=== PATIENT | female | born 1935 | race Asian ===

== ENCOUNTER 2024-05-10 14:54 | Emergency (ER) | payer MEDICARE, OTHER ==
[~2024-05-10] VITALS: Ht 157.5 cm; Wt 52.2 kg
[2024-05-10 15:00] VITALS: BP 159/76; TEMP 98.3; O2SAT 97
[2024-05-10 15:21] LABS: BASOPHILS # (AUTO) 0.1 K/uL (0.0-0.2); BASOPHILS % (AUTO) 0.8 % (0.0-2.0); EOSINOPHILS # (AUTO) 0.1 K/uL (0.0-0.7); EOSINOPHILS % (AUTO) 1.3 % (0.0-6.0); HEMATOCRIT 34 % (33-45); LYMPHOCYTES # (AUTO) 2.2 K/uL (0.8-4.8); LYMPHOCYTES % (AUTO) 27.8 % (20.0-44.0); MEAN CORPUSCULAR HEMOGLOBIN 30 PG (26.0-33.0); MEAN CORPUSCULAR HGB CONC 33 g/dl (31.0-36.0); MEAN CORPUSCULAR VOLUME 93 fL (82-100); MONOCYTES # (AUTO) 0.6 K/uL (0.1-1.30); NEUTROPHILS % (AUTO) 62.1 % (43.0-81.0); PLATELET COUNT (AUTO) 197 K/uL (150-450); RED BLOOD CELL COUNT(AUTO) 3.61 MIL/uL (4.0-5.2); RED CELL DISTRIBUTION WIDTH 13.5 % (11.5-15.0)
[2024-05-10 15:40] LABS: CALCIUM, SERUM 9.4 mg/dL (8.5-10.1); CARBON DIOXIDE 25 mmol/L (21-32); CHLORIDE 112 mmol/L (98-107); CREATININE 1.1 mg/dL (0.6-1.3); GLUCOSE 172 mg/dL (74-106); POTASSIUM 4.8 mmol/L (3.5-5.1); SODIUM SERUM 150 mmol/L (136-145); UREA NITROGEN, BLOOD 35 mg/dL (7-18)
[2024-05-10] MEDS: IV NS 0.9% 500 ML BAG IV ONE (16:15)
[2024-05-10] MEDS ORDERED: SODIUM BICARBONATE SYR 50 MEQ/50 ML DISP.SYRIN ONE (16:24)
[2024-05-10] MEDS: SODIUM BICARBONATE SYR 50 MEQ/50 ML DISP.SYRIN IV ONE (16:30)
[2024-05-10] MEDS ORDERED: ATOR10TA PO (16:36)
[2024-05-10] MEDS ORDERED: NAPR-1009 PO (16:36)
[2024-05-10] MEDS ORDERED: PANT40TA2 PO (16:36)
[2024-05-10] MEDS ORDERED: MULT-213 PO (16:36)
[2024-05-10] MEDS ORDERED: METF750T46 PO (16:36)
[2024-05-10] MEDS ORDERED: SACU1TAB PO (16:36)
[2024-05-10] MEDS ORDERED: INSU100I4 SQ (16:36)
[2024-05-10] MEDS ORDERED: FERR220S2 PO (16:36)
[2024-05-10] MEDS ORDERED: ACET-2030 PO ×2 (16:36)
[2024-05-10] MEDS ORDERED: MEGE40TA7 PO (16:36)
[2024-05-10] MEDS ORDERED: ACET-868 PO (16:36)
[2024-05-10] MEDS ORDERED: DOCU100T2 PO (16:36)
[2024-05-10] MEDS ORDERED: CALC-1276 PO (16:36)
[2024-05-10] MEDS ORDERED: ASPI-1169 PO (16:36)
[2024-05-10] MEDS ORDERED: ONDA4TAB5 PO (16:36)
[2024-05-10] MEDS ORDERED: CRAN425C6 PO (16:36)
[2024-05-10] MEDS ORDERED: METO25TA6 PO (16:36)
[2024-05-10] MEDS: Calcium Gluconate 1GM/10ML 4.65 MEQ in IV NS 0.9% 100 ML IV ONE (16:45)
[2024-05-10] MEDS ORDERED: IOHEXOL-350 100 ML VIAL IV ONE (17:11)
[2024-05-10] MEDS ORDERED: CT SWABBABLE VALVE TRANS SET 1 EA INFUS.SET MC ONE (17:12)
[2024-05-10] MEDS ORDERED: IV NS 0.9% 250 ML IV ONE (17:12)
== END 2024-05-10 19:30 | disposition short-term general hospital (02) ==
LOC: ER 15:00
DX: E86.0 Dehydration (principal); E87.0 Hyperosmolality and hypernatremia; R53.1 Weakness; G93.49 Other encephalopathy
CPT/HCPCS: 99285; 70496; 96365; 71045; 96375; 93005; 85025; 80048; 36415; 84484 ×2; 70450; J0612; J3490; J7030; J7050; J7040 ×2; A4223; Q9967

== ENCOUNTER 2024-05-30 13:45 | Inpatient (IN) | payer MEDICARE, OTHER ==
[~2024-05-30] VITALS: Ht 154.9 cm; Wt 48.5 kg
[~2024-05-30 13:45] MED LIST: ACET-2030 PO; ACET-868 PO; ASPI-1169 PO; ATOR10TA PO; CALC-1276 PO; CRAN425C6 PO; DOCU100T2 PO; FERR220S2 PO; INSU100I4 SQ; MEGE40TA7 PO; METF750T46 PO; METO25TA6 PO; MULT-213 PO; NAPR-1009 PO; ONDA4TAB5 PO; PANT40TA2 PO; SACU1TAB PO
[2024-05-30] MEDS: IV NS 0.9% 1,000 ML BAG IV ONE ×2 (14:50→16:40)
[2024-05-30 14:56] LABS: BASOPHILS # (AUTO) 0.1 K/uL (0.0-0.2); BASOPHILS % (AUTO) 0.8 % (0.0-2.0); EOSINOPHILS # (AUTO) 0.1 K/uL (0.0-0.7); EOSINOPHILS % (AUTO) 0.9 % (0.0-6.0); HEMATOCRIT 36 % (33-45); HEMOGLOBIN 11.6 g/dL (11.5-14.8); LYMPHOCYTES # (AUTO) 1.9 K/uL (0.8-4.8); LYMPHOCYTES % (AUTO) 24.1 % (20.0-44.0); MEAN CORPUSCULAR HEMOGLOBIN 30 PG (26.0-33.0); MEAN CORPUSCULAR HGB CONC 33 g/dl (31.0-36.0); MEAN CORPUSCULAR VOLUME 91 fL (82-100); MONOCYTES # (AUTO) 0.4 K/uL (0.1-1.30); MONOCYTES % (AUTO) 5.6 % (2.0-12.0); NEUTROPHILS # (AUTO) 5.3 K/uL (1.8-8.9); NEUTROPHILS % (AUTO) 68.6 % (43.0-81.0); PLATELET COUNT (AUTO) 237 K/uL (150-450); RED BLOOD CELL COUNT(AUTO) 3.93 MIL/uL (4.0-5.2); RED CELL DISTRIBUTION WIDTH 14.4 % (11.5-15.0); WHITE BLOOD COUNT (AUTO) 7.8 K/uL (4.3-11.0)
[2024-05-30 15:09] LABS: INR 1.01 (0.91-1.10); PARTIAL THROMBOPLASTIN TIME 29.3 SEC (24.3-34.3); PROTHROMBIN TIME 10.7 SECS (9.2-11.1)
[2024-05-30 15:23] LABS: ALANINE AMINOTRANSFERASE 18 U/L (12-78); ALBUMIN 3.2 g/dL (3.4-5.0); ALKALINE PHOSPHATASE 74 U/L (46-116); ASPARTATE AMINOTRANSFERASE 18 U/L (15-37); BILIRUBIN,DIRECT 0.2 mg/dL (0.0-0.2); BILIRUBIN,TOTAL 0.6 mg/dL (0.2-1.0); CALCIUM, SERUM 9.4 mg/dL (8.5-10.1); CARBON DIOXIDE 25 mmol/L (21-32); CHLORIDE 110 mmol/L (98-107); CREATININE 1.1 mg/dL (0.6-1.3); GLUCOSE 171 mg/dL (74-106); LIPASE 30 U/L (16-77); POTASSIUM 3.1 mmol/L (3.5-5.1); SODIUM SERUM 151 mmol/L (136-145); TOTAL PROTEIN, SERUM 7.3 g/dL (6.4-8.2); UREA NITROGEN, BLOOD 24 mg/dL (7-18)
[2024-05-30 15:33] LABS: LACTIC ACID 4.8 mmol/L (0.4-2.0)
[2024-05-30] MEDS ORDERED: IV NS 0.9% 250 ML IV ONE (15:56)
[2024-05-30] MEDS ORDERED: IOHEXOL-300 100 ML VIAL IV ONE (15:56)
[2024-05-30] MEDS ORDERED: NA P133E RC (16:01)
[2024-05-30] MEDS ORDERED: ZINC220C6 PO (16:01)
[2024-05-30] MEDS ORDERED: MAGN400O6 PO (16:01)
[2024-05-30] MEDS ORDERED: BISA10SU11 RC (16:01)
[2024-05-30] MEDS ORDERED: MEGE400O5 PO (16:01)
[2024-05-30] MEDS ORDERED: ASCO500T10 PO (16:01)
[2024-05-30] MEDS ORDERED: METF-440 PO (16:01)
[2024-05-30] MEDS ORDERED: CHOL3000 PO (16:01)
[2024-05-30 17:08] LABS: APPEARANCE,URINE TURBID (CLEAR); COLOR,URINE RED (YELLOW)
[2024-05-30 17:18] LABS: RBC,URINE TOO NUMEROUS TO COUN /HPF (0-2)
[2024-05-30 17:21] LABS: BACTERIA,URINE Moderate /HPF (None Seen); SQUAMOUS EPITHELIAL CELL,UR Few /HPF (None Seen)
[2024-05-30] MEDS ORDERED: Z GUARD REMEDY 4 OZ OINT TP PRN (18:30)
[2024-05-30] MEDS ORDERED: ACETAMINOPHEN 325 MG TABLET PO PRN (18:30)
[2024-05-30] MEDS ORDERED: MAGNESIUM HYDROXIDE 30 ML UDC PO PRN (18:30)
[2024-05-30] MEDS ORDERED: DEXTROSE 50%-WATER 50 ML DISP.SYRIN IV PRN (18:30)
[2024-05-30] MEDS ORDERED: MAG HYDROX/AL HYDROX/SIMETH 30 ML UDC PO PRN (18:30)
[2024-05-30] MEDS ORDERED: ONDANSETRON HCL/PF 4 MG/2 ML VIAL IVP PRN (18:30)
[2024-05-30] MEDS ORDERED: ZOLPIDEM TARTRATE 5 MG TABLET PO PRN (18:30)
[2024-05-30 18:34] VITALS: BP 155/88; TEMP 98.1; O2SAT 98
[2024-05-30] MEDS: ENOXAPARIN SODIUM 30 MG/0.3 ML DISP.SYRIN SQ SCH (18:48)
[2024-05-30] MEDS: IV 1/2NS 1000 ML 1,000 ML IV PRN (19:11)
[2024-05-30] MEDS: POTASSIUM CHLORIDE 20 MEQ TAB.PRT.SR PO ONE (19:19)
[2024-05-30 20:00] VITALS: BP 150/90; TEMP 98.2; O2SAT 100
[2024-05-30] MEDS: POTASSIUM CL. PREMIX PERIPHER. 50 ML IV SCH (20:36)
[2024-05-30] MEDS: BLOOD SUGAR DIAGNOSTIC 1 EACH STRIP IN SCH (23:02)
[2024-05-31 07:00] VITALS: BP 120/98; TEMP 97.1; O2SAT 91
[2024-05-31] MEDS: PANTOPRAZOLE 40 MG TABLET.DR PO SCH (07:54)
[2024-05-31 10:30] LABS: BASOPHILS # (AUTO) 0.1 K/uL (0.0-0.2); BASOPHILS % (AUTO) 1.1 % (0.0-2.0); EOSINOPHILS % (AUTO) 0.4 % (0.0-6.0); HEMATOCRIT 33 % (33-45); LYMPHOCYTES # (AUTO) 1.2 K/uL (0.8-4.8); LYMPHOCYTES % (AUTO) 14.4 % (20.0-44.0); MEAN CORPUSCULAR HEMOGLOBIN 30 PG (26.0-33.0); MEAN CORPUSCULAR HGB CONC 33 g/dl (31.0-36.0); MEAN CORPUSCULAR VOLUME 92 fL (82-100); MONOCYTES # (AUTO) 0.5 K/uL (0.1-1.30); NEUTROPHILS # (AUTO) 6.7 K/uL (1.8-8.9); NEUTROPHILS % (AUTO) 78.1 % (43.0-81.0); PLATELET COUNT (AUTO) 217 K/uL (150-450); RED BLOOD CELL COUNT(AUTO) 3.64 MIL/uL (4.0-5.2); RED CELL DISTRIBUTION WIDTH 14.4 % (11.5-15.0); WHITE BLOOD COUNT (AUTO) 8.6 K/uL (4.3-11.0)
[2024-05-31] MEDS ORDERED: MAGNESIUM HYDROXIDE 30 ML UDC PO PRN (10:30)
[2024-05-31] MEDS ORDERED: ACETAMINOPHEN ES 500 MG TABLET PO PRN (10:30)
[2024-05-31] MEDS ORDERED: ACETAMINOPHEN 325 MG TABLET PO PRN (10:30)
[2024-05-31] MEDS ORDERED: NA PHOS,M-B/NA PHOS,DI-BA 1 EA ENEMA RC PRN (10:30)
[2024-05-31] MEDS ORDERED: BISACODYL SUPP (10 MG) 10 MG/SUPP.RECT SUPP.RECT RC PRN (10:30)
[2024-05-31 10:44] LABS: CALCIUM, SERUM 8.2 mg/dL (8.5-10.1); MAGNESIUM 1.5 mg/dL (1.8-2.4); PHOSPHORUS 2.7 mg/dL (2.5-4.9); POTASSIUM 3.6 mmol/L (3.5-5.1)
[2024-05-31 10:55] LABS: THYROID STIMULATING HORMONE 0.5 uIU/mL (0.358-3.74)
[2024-05-31] MEDS: MAGNESIUM OXIDE 400 MG TABLET PO ONE (11:33)
[2024-05-31] MEDS: INSULIN REGULAR, HUMAN 100 UNIT/ML 3 ML VIAL SQ PRN (11:38)
[2024-05-31] MEDS ORDERED: Medication Not On Formulary EA (Cranberry Extract (Cranberry) 450 MG) PO SCH (13:00)
[2024-05-31] MEDS: FERROUS SULFATE UDC 300 MG/5 ML UDC PO SCH (13:27)
[2024-05-31 16:00] VITALS: BP 119/66; TEMP 97.7; O2SAT 99
[2024-05-31] MEDS: METOPROLOL TARTRATE 25 MG TABLET PO SCH (16:21)
[2024-05-31] MEDS: MEGESTROL ACETATE SUSP 400 MG/10 ML UDC PO SCH (16:21)
[2024-05-31] MEDS: SACUBITRIL/VALSARTAN 24/26MG TABLET PO SCH (16:22)
[2024-05-31] MEDS: METFORMIN 500 MG TABLET PO SCH (16:23)
[2024-05-31 16:55] LABS: APPEARANCE,URINE SLIGHTLY CLOUDY (CLEAR); BILIRUBIN,URINE 1+ (NEGATIVE); BLOOD, URINE 3+ Ery/uL (NEGATIVE); COLOR,URINE BROWN (YELLOW); KETONES,URINE 3+ mg/dL (NEGATIVE); LEUKOCYTE ESTERASE ,URINE TRACE (NEGATIVE); NITRITE, URINE NEGATIVE (NEGATIVE); PH,URINE 5.5 (5.0-8.0); PROTEIN,URINE 2+ mg/dl (NEGATIVE); UGLUCOSE TRACE mg/dL (NEGATIVE); UROBILINOGEN,URINE 0.2 EU/dL (0.2)
[2024-05-31] MEDS: MULTIVIT W/MINERALS 1 TAB TABLET PO SCH (17:07)
[2024-05-31 17:10] LABS: ADD URINE CULTURE YES; BACTERIA,URINE 1+ /HPF (None Seen); RBC,URINE TOO NUMEROUS TO COUN /HPF (0-2)
[2024-05-31 17:16] LABS: CREATININE, URINE 50.4 MG/DL (30.0-125.0); URINE TOTAL PROTEIN 134.8 mg/dL (0-11.9)
[2024-05-31 18:11] LABS: EOSINOPHIL,URINE None Seen
[2024-05-31 20:00] VITALS: BP 117/77; TEMP 98.2; O2SAT 100
[2024-05-31] MEDS: ATORVASTATIN 10 MG TABLET PO SCH (21:28)
[2024-05-31] MEDS ORDERED: ATORVASTATIN 10 MG TABLET PO SCH (22:00)
[2024-05-31] MEDS: DOCUSATE SODIUM 100 MG CAPSULE PO SCH (22:20)
[2024-05-31 23:19] VITALS: BP 117/77; TEMP 98.2; O2SAT 100
[2024-06-01 06:46] LABS: BASOPHILS # (AUTO) 0.1 K/uL (0.0-0.2); BASOPHILS % (AUTO) 0.9 % (0.0-2.0); EOSINOPHILS # (AUTO) 0.1 K/uL (0.0-0.7); EOSINOPHILS % (AUTO) 1.3 % (0.0-6.0); HEMATOCRIT 34 % (33-45); HEMOGLOBIN 11.3 g/dL (11.5-14.8); LYMPHOCYTES # (AUTO) 1.9 K/uL (0.8-4.8); LYMPHOCYTES % (AUTO) 19.1 % (20.0-44.0); MEAN CORPUSCULAR HEMOGLOBIN 30 PG (26.0-33.0); MEAN CORPUSCULAR HGB CONC 33 g/dl (31.0-36.0); MEAN CORPUSCULAR VOLUME 90 fL (82-100); MONOCYTES % (AUTO) 9.6 % (2.0-12.0); NEUTROPHILS % (AUTO) 69.1 % (43.0-81.0); PLATELET COUNT (AUTO) 206 K/uL (150-450); RED BLOOD CELL COUNT(AUTO) 3.76 MIL/uL (4.0-5.2); RED CELL DISTRIBUTION WIDTH 14.5 % (11.5-15.0); WHITE BLOOD COUNT (AUTO) 10.1 K/uL (4.3-11.0)
[2024-06-01 07:10] LABS: CALCIUM, SERUM 8.2 mg/dL (8.5-10.1); CREATININE 0.8 mg/dL (0.6-1.3); MAGNESIUM 1.5 mg/dL (1.8-2.4); PHOSPHORUS 1.9 mg/dL (2.5-4.9)
[2024-06-01 08:00] VITALS: BP 139/68; TEMP 98.4; O2SAT 98
[2024-06-01] MEDS: ASCORBIC ACID 500 MG TABLET PO SCH (08:04)
[2024-06-01] MEDS: CHOLECALCIFEROL 1,000 UNIT TABLET (VIT D3) PO SCH (08:04)
[2024-06-01] MEDS: CALCIUM CARB 600MG /VIT D 1 EACH TABLET PO SCH (08:05)
[2024-06-01] MEDS: ASPIRIN 81 MG TAB.CHEW PO SCH (08:05)
[2024-06-01] MEDS: ZINC SULFATE 220 MG CAPSULE PO SCH (08:05)
[2024-06-01] MEDS: CEFTRIAXONE 1 G in IV D5W 50 ML IV SCH (09:25)
[2024-06-01] MEDS: MAGNESIUM OXIDE 400 MG TABLET PO ONE (09:26)
[2024-06-01] MEDS: POTASSIUM CHLORIDE 20 MEQ TAB.PRT.SR PO SCH (10:05)
[2024-06-01] MEDS: K PHOS NEUTRAL 250 MG TABLET PO ONE (10:35)
[2024-06-01 16:00] VITALS: BP 135/61; TEMP 97.5; O2SAT 99
[2024-06-01 20:00] VITALS: BP 133/88; TEMP 97.7; O2SAT 98
[2024-06-02 08:00] VITALS: BP 143/66; TEMP 98.3; O2SAT 94
[2024-06-02 10:47] LABS: BASOPHILS % (AUTO) 0.5 % (0.0-2.0); EOSINOPHILS # (AUTO) 0.1 K/uL (0.0-0.7); HEMATOCRIT 32 % (33-45); HEMOGLOBIN 10.4 g/dL (11.5-14.8); LYMPHOCYTES # (AUTO) 1.4 K/uL (0.8-4.8); MEAN CORPUSCULAR HEMOGLOBIN 30 PG (26.0-33.0); MEAN CORPUSCULAR HGB CONC 33 g/dl (31.0-36.0); MEAN CORPUSCULAR VOLUME 93 fL (82-100); MONOCYTES % (AUTO) 10.2 % (2.0-12.0); NEUTROPHILS % (AUTO) 73.3 % (43.0-81.0); PLATELET COUNT (AUTO) 168 K/uL (150-450); RED BLOOD CELL COUNT(AUTO) 3.44 MIL/uL (4.0-5.2); RED CELL DISTRIBUTION WIDTH 14.6 % (11.5-15.0); WHITE BLOOD COUNT (AUTO) 9.6 K/uL (4.3-11.0)
[2024-06-02 11:00] LABS: CREATININE 0.8 mg/dL (0.6-1.3); MAGNESIUM 1.6 mg/dL (1.8-2.4); PHOSPHORUS 1.8 mg/dL (2.5-4.9); POTASSIUM 3.8 mmol/L (3.5-5.1)
[2024-06-02 16:00] VITALS: BP 142/53; TEMP 97.9; O2SAT 94
[2024-06-02] MEDS ORDERED: K PHOS NEUTRAL 250 MG TABLET PO ONE (16:00)
[2024-06-02] MEDS: MAGNESIUM OXIDE 400 MG TABLET PO SCH (16:04)
[2024-06-02] MEDS: K PHOS NEUTRAL 250 MG TABLET PO ONE (16:04)
[2024-06-02] MEDS: ENSURE ENLIVE 237 ML LIQUID (VANILLA) PO SCH (18:10)
[2024-06-02 20:00] VITALS: BP 138/65; TEMP 98.4; O2SAT 100
[2024-06-03 06:54] LABS: BASOPHILS # (AUTO) 0.1 K/uL (0.0-0.2); BASOPHILS % (AUTO) 0.6 % (0.0-2.0); EOSINOPHILS # (AUTO) 0.2 K/uL (0.0-0.7); EOSINOPHILS % (AUTO) 1.5 % (0.0-6.0); HEMATOCRIT 32 % (33-45); HEMOGLOBIN 10.5 g/dL (11.5-14.8); LYMPHOCYTES # (AUTO) 1.2 K/uL (0.8-4.8); LYMPHOCYTES % (AUTO) 10.9 % (20.0-44.0); MEAN CORPUSCULAR HEMOGLOBIN 30 PG (26.0-33.0); MEAN CORPUSCULAR HGB CONC 33 g/dl (31.0-36.0); MEAN CORPUSCULAR VOLUME 92 fL (82-100); MONOCYTES # (AUTO) 1.3 K/uL (0.1-1.30); MONOCYTES % (AUTO) 11.9 % (2.0-12.0); NEUTROPHILS # (AUTO) 8.5 K/uL (1.8-8.9); NEUTROPHILS % (AUTO) 75.1 % (43.0-81.0); PLATELET COUNT (AUTO) 139 K/uL (150-450); RED BLOOD CELL COUNT(AUTO) 3.48 MIL/uL (4.0-5.2); RED CELL DISTRIBUTION WIDTH 14.8 % (11.5-15.0); WHITE BLOOD COUNT (AUTO) 11.3 K/uL (4.3-11.0)
[2024-06-03 07:09] LABS: CREATININE 0.8 mg/dL (0.6-1.3); MAGNESIUM 1.5 mg/dL (1.8-2.4); PHOSPHORUS 2.3 mg/dL (2.5-4.9); POTASSIUM 3.5 mmol/L (3.5-5.1)
[2024-06-03 08:00] VITALS: BP 132/67; TEMP 97.9; O2SAT 100
[2024-06-03] MEDS: PANTOPRAZOLE 40 MG/PACK PACK PO SCH (10:22)
[2024-06-03] MEDS ORDERED: Magnesium 1GM/D5W 100ML PREMIX 100 ML IV SCH (11:00)
[2024-06-03] MEDS: NEUTRA PHOS 1 POWD.PACKET PO ONE (12:04)
[2024-06-03 16:00] VITALS: BP 109/46; TEMP 97.7; O2SAT 93
[2024-06-03 16:15] VITALS: O2SAT 94
[2024-06-03 20:00] VITALS: BP 154/87; TEMP 98.1; TEMP 98.2; O2SAT 95
[2024-06-04] VITALS (7 sets, daily range): BP systolic 127–154; BP diastolic 71–80; TEMP 97.7–99.5; O2SAT 90–100
[2024-06-04 06:30] LABS: BASOPHILS % (AUTO) 0.4 % (0.0-2.0); EOSINOPHILS % (AUTO) 0.3 % (0.0-6.0); HEMATOCRIT 42 % (33-45); LYMPHOCYTES % (AUTO) 32.9 % (20.0-44.0); MEAN CORPUSCULAR HEMOGLOBIN 31 PG (26.0-33.0); MEAN CORPUSCULAR HGB CONC 34 g/dl (31.0-36.0); MEAN CORPUSCULAR VOLUME 91 fL (82-100); MONOCYTES # (AUTO) 0.8 K/uL (0.1-1.30); MONOCYTES % (AUTO) 8.9 % (2.0-12.0); NEUTROPHILS # (AUTO) 5.3 K/uL (1.8-8.9); NEUTROPHILS % (AUTO) 57.5 % (43.0-81.0); PLATELET COUNT (AUTO) 283 K/uL (150-450); RED BLOOD CELL COUNT(AUTO) 4.57 MIL/uL (4.0-5.2); RED CELL DISTRIBUTION WIDTH 13.1 % (11.5-15.0); WHITE BLOOD COUNT (AUTO) 9.1 K/uL (4.3-11.0)
[2024-06-04 06:34] LABS: CALCIUM, SERUM 9.5 mg/dL (8.5-10.1); CREATININE 0.6 mg/dL (0.6-1.3); MAGNESIUM 2.1 mg/dL (1.8-2.4); PHOSPHORUS 3.6 mg/dL (2.5-4.9); POTASSIUM 3.2 mmol/L (3.5-5.1)
[2024-06-04] MEDS ORDERED: POTASSIUM CL. PREMIX PERIPHER. 50 ML IV SCH (10:00)
[2024-06-04 10:07] LABS: ABG OXYGEN SATURATION 98.4 % (94.0-98.0); ABG PCO2 23.2 mmHg (32.0-45.0); ABG PO2 130.4 mmHg (83.0-108.0); ABG TOTAL HEMOGLOBIN 9.6 G/dL (12.0-16.0); COHb 0.3 % (0.5-1.5); MetHb 0.4 % (0.0-1.5); O2Hb 97.7 % (94.0-97.0); SITE, ABG RIGHT RADIAL
[2024-06-04] MEDS: POTASSIUM CHLORIDE 20 MEQ TAB.PRT.SR PO SCH (10:30)
[2024-06-04] MEDS: POTASSIUM CL. PREMIX PERIPHER. 50 ML IV SCH (10:58)
[2024-06-04] MEDS: ACETAMINOPHEN 650 MG/SUPP.RECT RC PRN (10:58)
[2024-06-04 11:16] LABS: THYROID STIMULATING HORMONE 1.27 uIU/mL (0.358-3.74)
[2024-06-04] MEDS: IV D5/0.45 NACL 1,000 ML IV SCH (19:43)
[2024-06-05 08:00] VITALS: BP 154/92; TEMP 98.4; O2SAT 100
[2024-06-05 08:43] VITALS: BP 154/92
[2024-06-05] MEDS ORDERED: IV D5/0.45 NACL 1,000 ML IV PRN (10:45)
[2024-06-05 11:13] LABS: FOLIC ACID 11.6 ng/mL (>3.0)
== END 2024-06-05 17:40 | DRG 641 ==
LOC: ER 13:50 → MED 17:36
PROVIDERS: ADMIT Student in an Organized Health Care Education/Training Program; ATTEND Nurse Practitioner Acute Care
DX: R62.7 Adult failure to thrive (principal); E44.0 Moderate protein-calorie malnutrition; E87.0 Hyperosmolality and hypernatremia; E87.20 Acidosis, unspecified; E86.0 Dehydration; E87.6 Hypokalemia; E11.9 Type 2 diabetes mellitus without complications; E78.5 Hyperlipidemia, unspecified; E83.39 Other disorders of phosphorus metabolism; E83.42 Hypomagnesemia; Z79.4 Long term (current) use of insulin; Z79.84 Long term (current) use of oral hypoglycemic drugs; K21.9 Gastro-esophageal reflux disease without esophagitis; E83.9 Disorder of mineral metabolism, unspecified; Z68.20 Body mass index [BMI] 20.0-20.9, adult; G30.9 Alzheimer's disease, unspecified; F02.80 Dementia in other diseases classified elsewhere, unspecified severity, without behavioral disturbance, psychotic disturbance, mood disturbance, and anxiety; I11.0 Hypertensive heart disease with heart failure; I50.9 Heart failure, unspecified
CPT/HCPCS: 36415; 36600; 71045-TC; 76770-TC; 80048-TC; 80076-TC; 81001; 82140-TC; 82570-TC; 82607-TC; 82803-TC; 82962-TC; 83605-TC; 83690-TC; 83735-TC; 83880; 83921; 83935-TC; 84100-TC; 84300-TC; 84425; 84443-TC; 84484-TC; 85025-TC; 85730-TC; 87081-TC; 87086-TC; 92526; 92611-TC; 93307-TC; 94799-TC; 97110-TC; 97112-TC; 97530-TC; A4223; G0378; J0696; J1650; J1815; J3480; J3490; J7030; J7050; J7060; Q9967